=== PATIENT | male | born 1970 | race African-American/Black ===

== ENCOUNTER 2018-12-18 07:35 | Emergency (ER) | payer SELFPAY ==
[~2018-12-18] VITALS: Ht 175.3 cm; Wt 86.2 kg
[2018-12-18 08:42] VITALS: BP 147/90
[2018-12-18] MEDS ORDERED: PENICILLIN G BENZ 1200000 UNITS/2 ML SYRG IM ONE (09:15)
== END 2018-12-18 09:20 | disposition home or self-care (01) ==
LOC: ER 07:35
DX: R21 Rash and other nonspecific skin eruption (principal); F17.210 Nicotine dependence, cigarettes, uncomplicated

== ENCOUNTER 2021-07-23 10:59 | Emergency (ER) | payer BC ==
[~2021-07-23] VITALS: Ht 175.3 cm; Wt 90.7 kg
[2021-07-23 14:29] VITALS: BP 129/93
[2021-07-23] MEDS ORDERED: methylPREDNISolone SOD SUCC 125 MG/2 ML VL IM ONE (14:45)
== END 2021-07-23 15:00 | disposition home or self-care (01) ==
LOC: ER 10:59
DX: L25.9 Unspecified contact dermatitis, unspecified cause (principal); F17.210 Nicotine dependence, cigarettes, uncomplicated
CPT/HCPCS: 96372; 99283; J2930